=== PATIENT | female | born 1980 | race Caucasian/White ===

== ENCOUNTER 2017-01-15 16:41 | Emergency (ER) | payer OTHER ==
[~2017-01-15] VITALS: Ht 162.6 cm; Wt 97.5 kg
[2017-01-15 17:14] VITALS: BP 116/72
[2017-01-15] MEDS ORDERED: NEURONTIN 300300 M1 PO (17:25)
[2017-01-15] MEDS ORDERED: PROZAC20 MG PO (17:25)
[2017-01-15] MEDS ORDERED: IBUPROFEN 800800 M1 PO (17:26)
[2017-01-15] MEDS ORDERED: CLONAZEPAM 1 MG1 M1 PO (17:26)
[2017-01-15] MEDS ORDERED: TRAMADOL 50 MG50 MG PO (17:41)
[2017-01-15] MEDS ORDERED: ULTRAM 50MG TAB50 MG PO (17:46)
[2017-01-15] MEDS ORDERED: [UNRECOGNIZED DRUG - SUPPLY] TP (17:46)
== END 2017-01-15 17:58 | disposition home or self-care (01) ==
LOC: ER 16:41
DX: Z76.0 Encounter for issue of repeat prescription (principal); G89.29 Other chronic pain; F17.210 Nicotine dependence, cigarettes, uncomplicated; Z88.8 Allergy status to other drugs, medicaments and biological substances